=== PATIENT | female | born 1970 | race Caucasian/White ===

== ENCOUNTER 2020-10-27 05:56 | Day surgery (SDC) | payer BC ==
[2020-10-23 12:48] VITALS: BMI 40.3
[2020-10-23 14:21] LABS: Hemoglobin 13.2 g/dL (12.0-15.5); Mean Corpuscular HGB CONC 32.2 g/dL (32.0-36.0); Mean Corpuscular Hemoglobin 30.1 pg (27.0-33.0); Mean Corpuscular Volume 93.4 fl (81.6-98.3); Mean Platelet Volume 10.3 fl (7.4-10.4); Platelet Count 259 10x3/uL (150-450); RBC Distribution Width 14.5 % (11.5-14.5); Red Blood Cell (RBC) Count 4.39 10x6/uL (3.90-5.03); White Blood Cell (WBC) Count 8.9 10x3/uL (3.5-10.5)
[2020-10-24 15:23] LABS: SARS-CoV-2 PCR by NAA Not Detected (NotDetected)
[2020-10-27] MEDS ORDERED: CeleCOXIB 100 MG CAP ONE (06:13)
[2020-10-27] MEDS ORDERED: Lidocaine 1% MPF 2 ML VIAL ONE (06:13)
[2020-10-27] MEDS ORDERED: Gabapentin 300 MG CAP ONE (06:13)
[2020-10-27] MEDS ORDERED: Famotidine/PF 20 mg/2ml Vial ONE (06:14)
[2020-10-27] MEDS ORDERED: Scopolamine 1.5 mg/72 hour Patch ONE (06:48)
[2020-10-27] MEDS ORDERED: Fentanyl 100 MCG/2 ML VIAL ONE ×2 (06:51→08:35)
[2020-10-27] MEDS ORDERED: PROPOFOL 20 ML ONE (06:51)
[2020-10-27] MEDS ORDERED: Lidocaine 1% w/Epinephrine 1:100K 30 ML VIAL ONE (06:55)
[2020-10-27] MEDS ORDERED: Midazolam HCl 2 mg/2 ml Vial ONE (07:14)
[2020-10-27] MEDS ORDERED: Lidocaine 1% PF 5 ML VIAL ONE (07:17)
[2020-10-27] MEDS ORDERED: Dexamethasone 4 mg/ml Vial ONE (07:17)
[2020-10-27] MEDS ORDERED: Ondansetron PF 4 MG/2 ML Vial ONE (07:17)
[2020-10-27] MEDS ORDERED: Methylene Blue 50 MG/10 ML AMPUL ONE (07:51)
[2020-10-27] MEDS ORDERED: HYDROcodone/Acetaminophen 5/325 mg Tablet ONE ×2 (10:12→12:02)
[2020-10-27] MEDS ORDERED: Ondansetron PF 4 MG/2 ML Vial IVP PRN (14:10)
[2020-10-27] MEDS ORDERED: HYDROcodone/Acetaminophen 5/325 mg Tablet PO PRN (14:10)
[2020-10-27] MEDS ORDERED: Bisacodyl 10 MG SUPP PR PRN (14:10)
[2020-10-27] MEDS ORDERED: Acetaminophen 325 MG TAB PO PRN (14:10)
[2020-10-27] MEDS ORDERED: diphenhydrAMINE 25 MG CAP PO PRN (14:10)
[2020-10-27] MEDS ORDERED: Morphine 4 MG/ML VIAL SLOW IVP PRN (14:10)
[2020-10-27] MEDS ORDERED: Zolpidem Tartrate 5 MG TAB PO PRN (14:10)
[2020-10-27] MEDS: Ibuprofen 800 MG TAB PO SCH ×2 (15:07→22:25)
[2020-10-27] MEDS ORDERED: traZODone HCl 50 MG TAB PO SCH (21:00)
[2020-10-27] MEDS ORDERED: Cyclobenzaprine 10 MG TAB PO SCH (21:00)
[2020-10-27] MEDS: Simethicone Chewable 80 MG TAB PO PRN (21:21)
[2020-10-27] MEDS: clonazePAM 1 MG TAB PO SCH (21:21)
[2020-10-27] MEDS: Topiramate 100 MG TAB PO SCH (21:21)
[2020-10-27] MEDS: HYDROcodone/Acetaminophen 5/325 mg Tablet PO PRN (22:24)
[2020-10-28] MEDS: HYDROcodone/Acetaminophen 5/325 mg Tablet PO PRN ×3 (04:07→12:40)
[2020-10-28] MEDS: Simethicone Chewable 80 MG TAB PO PRN (06:33)
[2020-10-28] MEDS: Ibuprofen 800 MG TAB PO SCH ×2 (06:33→15:11)
[2020-10-28] MEDS: clonazePAM 1 MG TAB PO SCH (08:25)
[2020-10-28] MEDS: Topiramate 100 MG TAB PO SCH (08:25)
[2020-10-28 11:31] VITALS: BP 116/67; TEMP 98.5
== END 2020-10-28 16:27 | disposition home or self-care (01) ==
LOC: CSHSDC 05:56 → CSHPED 14:07 → UNDOADMOB 14:07 → CSHSDC 10-28 16:27
PROVIDERS: ATTEND Student in an Organized Health Care Education/Training Program
DX: N39.3 Stress incontinence (female) (male) (principal); Z79.899 Other long term (current) drug therapy; M06.9 Rheumatoid arthritis, unspecified; F41.9 Anxiety disorder, unspecified; E78.5 Hyperlipidemia, unspecified; I10 Essential (primary) hypertension; E66.9 Obesity, unspecified; Z90.49 Acquired absence of other specified parts of digestive tract; Z90.710 Acquired absence of both cervix and uterus; Z20.822 Contact with and (suspected) exposure to COVID-19
CPT/HCPCS: 85027; 86850; 86900; 86901; C1781; J0690; J1100; J2250; J2270; J2405; J2704; J3010; Q9968; S0028; U0003; U0005